=== PATIENT | female | born 1975 | race African-American/Black ===

== ENCOUNTER → 2022-11-12 | Outpatient (CLI) | payer BC, SELFPAY ==
[2022-11-12 16:14] LABS: Thyroid Stim Hormone (TSH) 0.24 uIU/mL (0.358-3.74)
[2022-11-12 16:27] LABS: Hemoglobin A1c 5.3 % (3.8-5.6)
== END | disposition home or self-care (01) ==
DX: E03.8 Other specified hypothyroidism (principal); R73.03 Prediabetes
CPT/HCPCS: 36415; 83036; 84443